=== PATIENT | male | born 1990 | race African-American/Black ===

== ENCOUNTER 2019-04-06 10:18 | Emergency (ER) | payer MEDICAID ==
[~2019-04-06] VITALS: Ht 172.7 cm; Wt 73.0 kg
[2019-04-06] MEDS ORDERED: IPRATROPIUM/ALBUTEROL 0.5-3(2.5)MG/3ML NEB HHN ONE (13:30)
[2019-04-06 13:48] LABS: CHLORIDE 107 mEq/L (98-107)
[2019-04-06 13:58] LABS: BASOPHILS % 0.1 % (0.0-2.0); EOSINOPHILS % 1.9 % (0.0-5.0); HEMATOCRIT. 46.5 % (42.0-52.0); HEMOGLOBIN. 15.9 g/dL (14.0-18.0); LYMPHOCYTES % 20.8 % (20.0-50.0); MEAN CORPUSCULAR HEMOGLOBIN 33.3 pg (28.0-32.0); MEAN CORPUSCULAR VOLUME 97.4 fL (80.0-94.0); MEAN PLATELET VOLUME 8.2 fl (7.4-10.4); MONOCYTES % 8.3 % (2.0-8.0); NEUTROPHILS % 68.9 % (40.0-76.0); PLATELET 230 x1000/uL (130-400); RED BLOOD CELL COUNT 4.77 mill/uL (4.7-6.1); RED CELL DISTRIBUTION WIDTH 12.7 % (11.6-14.6)
[2019-04-06 14:23] LABS: HEPATITIS B SURFACE ANTIGEN NEGATIVE
[2019-04-06 14:52] LABS: HEPATITIS A AB IGM NEGATIVE (NEGATIVE)
[2019-04-06 15:03] LABS: CLARITY URINE CLEAR (CLEAR); COLOR URINE YELLOW (YELLOW); KETONES URINE 1+ (NEGATIVE); LEUKOCYTE ESTERASE URINE NEGATIVE (NEGATIVE); NITRITE URINE NEGATIVE (NEGATIVE); OCCULT BLOOD URINE NEGATIVE (NEGATIVE); PH URINE 5.5 (4.5-8.0); PROTEIN URINE NEGATIVE (NEGATIVE); SPECIFIC GRAVITY URINE 1.028 (1.005-1.030); UROBILINOGEN URINE 0.2 E.U./dL (0.2-1.0)
[2019-04-06 15:17] LABS: CANNABINOID URINE SCREEN PRESUMTIVE POSITIVE (NEGATIVE); METHADONE URINE SCREEN NEGATIVE (NEGATIVE); OPIATES URINE SCREEN NEGATIVE (NEGATIVE); PHENCYCLIDINE URINE SCREEN NEGATIVE (NEGATIVE)
[2019-04-06 15:18] LABS: *AMPHETAMINES SCREEN URINE NEGATIVE (NEGATIVE); *BARBITURATES SCREEN URINE NEGATIVE (NEGATIVE); *BENZODIAZEPINES SCREEN URINE NEGATIVE (NEGATIVE); *COCAINE SCREEN URINE NEGATIVE (NEGATIVE)
[2019-04-06 15:55] VITALS: BP 122/74
[2019-04-08 05:06] LABS: HIV SCREEN 4G Non Reactive (Non Reactive)
== END 2019-04-06 15:55 | disposition home or self-care (01) ==
LOC: ER 10:49
DX: J45.901 Unspecified asthma with (acute) exacerbation (principal); M94.0 Chondrocostal junction syndrome [Tietze]; R45.1 Restlessness and agitation; R45.6 Violent behavior; K08.9 Disorder of teeth and supporting structures, unspecified; Z59.0 Homelessness; F20.9 Schizophrenia, unspecified; R82.4 Acetonuria; F12.10 Cannabis abuse, uncomplicated; R46.1 Bizarre personal appearance
CPT/HCPCS: 36415; 80053; 80305; 81003; 82140; 85025; 87389; 93005; 94640; 99284; J7620; Z7610; 86705; 86709; 86803; 87340

== ENCOUNTER 2019-04-06 19:50 | Emergency (ER) | payer MEDICAID ==
[~2019-04-06] VITALS: Ht 175.3 cm; Wt 73.0 kg
[2019-04-07] MEDS ORDERED: QUETIAPINE FUMARATE 50MG TABLET PO SCH (01:30)
[2019-04-07] MEDS ORDERED: LORAZEPAM 2MG/ML CPJ IM ONE (01:30)
[2019-04-07] MEDS ORDERED: OLANZAPINE 10 MG/VIAL IM ONE (01:30)
[2019-04-07 05:00] LABS: HEMATOCRIT. 45.6 % (42.0-52.0); HEMOGLOBIN. 15.5 g/dL (14.0-18.0); MEAN CORPUSCULAR HEMOGLOBIN 33.1 pg (28.0-32.0); MEAN CORPUSCULAR VOLUME 97.8 fL (80.0-94.0); MEAN PLATELET VOLUME 8.2 fl (7.4-10.4); PLATELET 193 x1000/uL (130-400); RED BLOOD CELL COUNT 4.67 mill/uL (4.7-6.1); RED CELL DISTRIBUTION WIDTH 12.8 % (11.6-14.6)
[2019-04-07 05:21] LABS: CHLORIDE 108 mEq/L (98-107)
[2019-04-07 05:22] LABS: PLATELET ESTIMATE NORMAL
[2019-04-07 05:25] LABS: ETHANOL BLOOD < 10 mg/dL
[2019-04-07] MEDS ORDERED: ALBUTEROL (0.083%) 2.5MG/3ML NEB HHN STA (10:21)
[2019-04-07] MEDS ORDERED: PREDNISONE 20MG TABLET PO STA (10:21)
[2019-04-07] MEDS ORDERED: IPRATROPIUM BROMIDE (0.02%) 0.5MG/2.5ML NEB HHN STA (10:21)
[2019-04-07 11:51] LABS: CLARITY URINE CLEAR (CLEAR); COLOR URINE YELLOW (YELLOW); KETONES URINE NEGATIVE (NEGATIVE); LEUKOCYTE ESTERASE URINE NEGATIVE (NEGATIVE); NITRITE URINE NEGATIVE (NEGATIVE); OCCULT BLOOD URINE NEGATIVE (NEGATIVE); PH URINE 5.5 (4.5-8.0); PROTEIN URINE NEGATIVE (NEGATIVE); SPECIFIC GRAVITY URINE 1.027 (1.005-1.030); UROBILINOGEN URINE 0.2 E.U./dL (0.2-1.0)
[2019-04-07 12:10] LABS: *AMPHETAMINES SCREEN URINE NEGATIVE (NEGATIVE); *BARBITURATES SCREEN URINE NEGATIVE (NEGATIVE)
[2019-04-07 12:11] LABS: *BENZODIAZEPINES SCREEN URINE NEGATIVE (NEGATIVE); *COCAINE SCREEN URINE NEGATIVE (NEGATIVE); CANNABINOID URINE SCREEN PRESUMTIVE POSITIVE (NEGATIVE); METHADONE URINE SCREEN NEGATIVE (NEGATIVE); OPIATES URINE SCREEN NEGATIVE (NEGATIVE); PHENCYCLIDINE URINE SCREEN NEGATIVE (NEGATIVE)
[2019-04-08] MEDS ORDERED: QUETIAPINE FUMARATE 50MG TABLET PO SCH (04:00)
[2019-04-08 10:50] VITALS: BP 125/80
== END 2019-04-08 12:08 | disposition home or self-care (01) ==
LOC: ER 19:50
DX: R45.851 Suicidal ideations (principal); R44.0 Auditory hallucinations; J45.909 Unspecified asthma, uncomplicated; F15.10 Other stimulant abuse, uncomplicated; Z88.1 Allergy status to other antibiotic agents
CPT/HCPCS: 71045; 96372; 99284; J2060; J3490; J7512; J7611; Z7610

== ENCOUNTER 2019-05-24 01:37 | Emergency (ER) | payer MEDICAID ==
[~2019-05-24] VITALS: Ht 177.8 cm; Wt 86.1 kg
[2019-05-24] MEDS ORDERED: ALBUTEROL (0.5%) 2.5MG/0.5ML NEB HHN ONE (03:30)
[2019-05-24 04:03] LABS: BASOPHILS % 0.5 % (0.0-2.0); EOSINOPHILS % 3.8 % (0.0-5.0); HEMATOCRIT. 42.6 % (42.0-52.0); HEMOGLOBIN. 14.3 g/dL (14.0-18.0); LYMPHOCYTES % 27.5 % (20.0-50.0); MEAN CORPUSCULAR HEMOGLOBIN 32.4 pg (28.0-32.0); MEAN CORPUSCULAR VOLUME 96.7 fL (80.0-94.0); MEAN PLATELET VOLUME 7.9 fl (7.4-10.4); MONOCYTES % 9.1 % (2.0-8.0); NEUTROPHILS % 59.1 % (40.0-76.0); PLATELET 214 x1000/uL (130-400); RED CELL DISTRIBUTION WIDTH 14.5 % (11.6-14.6)
[2019-05-24 04:14] LABS: CHLORIDE 107 mEq/L (98-107)
[2019-05-24 04:18] LABS: ETHANOL BLOOD < 10 mg/dL
[2019-05-24 04:42] LABS: CLARITY URINE CLEAR (CLEAR); COLOR URINE YELLOW (YELLOW); KETONES URINE NEGATIVE (NEGATIVE); LEUKOCYTE ESTERASE URINE NEGATIVE (NEGATIVE); NITRITE URINE NEGATIVE (NEGATIVE); OCCULT BLOOD URINE NEGATIVE (NEGATIVE); PROTEIN URINE NEGATIVE (NEGATIVE); SPECIFIC GRAVITY URINE 1.022 (1.005-1.030)
[2019-05-24] MEDS ORDERED: ACETAMINOPHEN 500MG TABLET PO ONE (04:45)
[2019-05-24 04:51] LABS: *COCAINE SCREEN URINE NEGATIVE (NEGATIVE); METHADONE URINE SCREEN NEGATIVE (NEGATIVE)
[2019-05-24 04:52] LABS: *AMPHETAMINES SCREEN URINE NEGATIVE (NEGATIVE); *BARBITURATES SCREEN URINE NEGATIVE (NEGATIVE); *BENZODIAZEPINES SCREEN URINE NEGATIVE (NEGATIVE); CANNABINOID URINE SCREEN PRESUMTIVE POSITIVE (NEGATIVE); OPIATES URINE SCREEN NEGATIVE (NEGATIVE); PHENCYCLIDINE URINE SCREEN NEGATIVE (NEGATIVE)
[2019-05-24] MEDS ORDERED: OLANZAPINE 5MG TABLET ODT PO ONE (12:30)
[2019-05-24] MEDS ORDERED: ALBUTEROL 6.7GM HFA INHALER ORI ONE (21:30)
[2019-05-24 22:10] VITALS: BP 123/71
== END 2019-05-24 22:50 ==
LOC: ER 01:37
DX: J45.909 Unspecified asthma, uncomplicated (principal); R44.0 Auditory hallucinations; F12.10 Cannabis abuse, uncomplicated; F31.9 Bipolar disorder, unspecified; Z98.890 Other specified postprocedural states; Z88.0 Allergy status to penicillin
CPT/HCPCS: 36415; 80053; 80305; 80307; 80320; 80329; 81003; 85025; 94640; 99285; J7611; Z7610; G0480

== ENCOUNTER 2019-06-03 07:20 | Emergency (ER) | payer MEDICAID ==
[~2019-06-03] VITALS: Ht 180.3 cm; Wt 84.0 kg
[2019-06-03] MEDS ORDERED: METHYLPREDNISOLONE SOD SUCC 125 MG/2 ML VIAL IV STA (07:41)
[2019-06-03] MEDS ORDERED: IPRATROPIUM BROMIDE (0.02%) 0.5MG/2.5ML NEB HHN STA (07:41)
[2019-06-03] MEDS ORDERED: ALBUTEROL (0.083%) 2.5MG/3ML NEB HHN STA (07:41)
[2019-06-03 09:13] VITALS: BP 128/75
== END 2019-06-03 09:17 | disposition home or self-care (01) ==
LOC: ER 07:20
DX: J45.901 Unspecified asthma with (acute) exacerbation (principal); F17.290 Nicotine dependence, other tobacco product, uncomplicated; F12.10 Cannabis abuse, uncomplicated; J45.909 Unspecified asthma, uncomplicated; F31.9 Bipolar disorder, unspecified; F20.9 Schizophrenia, unspecified; Z88.0 Allergy status to penicillin
CPT/HCPCS: 94644; 99285; J7611; Z7610

== ENCOUNTER 2020-01-14 10:30 | Inpatient (IN) | payer MEDICAID ==
[~2020-01-14] VITALS: Ht 177.8 cm; Wt 81.6 kg
[2020-01-14] MEDS ORDERED: METHYLPREDNISOLONE SOD SUCC 125 MG/2 ML VIAL IV STA (10:45)
[2020-01-14] MEDS ORDERED: ALBUTEROL (0.083%) 2.5MG/3ML NEB HHN STA (10:45)
[2020-01-14] MEDS ORDERED: IPRATROPIUM BROMIDE (0.02%) 0.5MG/2.5ML NEB HHN STA (10:45)
[2020-01-14 10:56] LABS: BASOPHILS % 0.4 % (0.0-2.0); EOSINOPHILS % 4.9 % (0.0-5.0); HEMATOCRIT. 49.8 % (42.0-52.0); HEMOGLOBIN. 17.2 g/dL (14.0-18.0); LYMPHOCYTES % 24.5 % (20.0-50.0); MEAN CORPUSCULAR HEMOGLOBIN 33.4 pg (28.0-32.0); MEAN CORPUSCULAR VOLUME 96.6 fL (80.0-94.0); MEAN PLATELET VOLUME 7.7 fl (7.4-10.4); MONOCYTES % 6.5 % (2.0-8.0); NEUTROPHILS % 63.7 % (40.0-76.0); PLATELET 264 x1000/uL (130-400); RED BLOOD CELL COUNT 5.15 mill/uL (4.7-6.1)
[2020-01-14 11:00] LABS: CHLORIDE 106 mEq/L (98-107)
[2020-01-14] MEDS ORDERED: MAGNESIUM 2 G PREMIX 50 ML IV ONE (11:00)
[2020-01-14] MEDS ORDERED: ENOXAPARIN 40MG/0.4ML SYR SUBCUT SCH (17:00)
[2020-01-14] MEDS: IPRATROPIUM/ALBUTEROL 0.5-3(2.5)MG/3ML NEB HHN SCH (17:30)
[2020-01-14] MEDS ORDERED: CLONIDINE 0.1MG TABLET PO PRN (18:45)
[2020-01-14 20:15] VITALS: BP_SYST 134; BP_SYST 139; BP_DIAS 75
[2020-01-14] MEDS: METHYLPREDNISOLONE SOD SUCC 40 MG/ML VIAL IV SCH (21:07)
[2020-01-14] MEDS ORDERED: ZOLPIDEM TARTRATE 5MG TABLET PO PRN (22:00)
[2020-01-14] MEDS ORDERED: CHLO10TA10 MT (22:58)
[2020-01-14] MEDS ORDERED: FLUT9.9S BOTHNSTRLS (22:58)
[2020-01-15 00:32] VITALS: BP 159/82
[2020-01-15] MEDS: IPRATROPIUM/ALBUTEROL 0.5-3(2.5)MG/3ML NEB HHN SCH ×4 (01:26→12:36)
[2020-01-15 04:20] VITALS: BP 128/51
[2020-01-15] MEDS: METHYLPREDNISOLONE SOD SUCC 40 MG/ML VIAL IV SCH ×2 (05:00→13:23)
[2020-01-15 08:00] VITALS: BP 130/72
[2020-01-15 12:00] VITALS: BP 133/79
[2020-01-15] MEDS ORDERED: PNEUMOCOCCAL 23-VAL P-SAC VAC 0.5 ML IM ONE (12:00)
[2020-01-15] MEDS ORDERED: FLUT1DIS3 INH (12:53)
[2020-01-15] MEDS ORDERED: IPRA3AMP9 NEB (12:53)
[2020-01-15] MEDS ORDERED: ALBU18HF2 IH (12:53)
[2020-01-15] MEDS ORDERED: P20 MT (12:53)
[2020-01-15 14:36] VITALS: BP 145/91
[2020-02-14] MEDS ORDERED: P50 MT (14:46)
[2020-02-14] MEDS ORDERED: AZIT500T3 MT (14:47)
== END 2020-01-15 16:08 | disposition home or self-care (01) | DRG 141 ==
LOC: ER 10:30 → 6WST 12:17 → EDBEDREQ 12:20 → ENRESERV 19:43 → 6WST 23:00
PROVIDERS: ADMIT Internal Medicine; ATTEND Internal Medicine
DX: J45.901 Unspecified asthma with (acute) exacerbation (principal); J96.01 Acute respiratory failure with hypoxia; I10 Essential (primary) hypertension; G83.24 Monoplegia of upper limb affecting left nondominant side; F31.9 Bipolar disorder, unspecified; F20.9 Schizophrenia, unspecified; F12.90 Cannabis use, unspecified, uncomplicated; Z88.1 Allergy status to other antibiotic agents
CPT/HCPCS: 36415; 71045; 80053; 85025; 93005; 94640; 94644; 99285; J1650; J2920; J2930; J3475

== ENCOUNTER 2020-02-12 05:36 | Inpatient (IN) | payer MEDICAID ==
[~2020-02-12] VITALS: Ht 177.8 cm; Wt 114.9 kg
[~2020-02-12 05:36] MED LIST: ALBU18HF2 IH; CHLO10TA10 MT; FLUT1DIS3 INH; FLUT9.9S BOTHNSTRLS; IPRA3AMP9 NEB; P20 MT
[2020-02-12] MEDS ORDERED: PREDNISONE 20MG TABLET PO STA (05:52)
[2020-02-12] MEDS ORDERED: IPRATROPIUM BROMIDE (0.02%) 0.5MG/2.5ML NEB HHN STA (05:52)
[2020-02-12] MEDS ORDERED: ALBUTEROL (0.083%) 2.5MG/3ML NEB HHN STA (05:52)
[2020-02-12] MEDS ORDERED: MAGNESIUM 1 G PREMIX 100 ML IV ONE (06:30)
[2020-02-12] MEDS ORDERED: TERBUTALINE SULFATE 1MG/ML VIAL SUBCUT ONE (06:30)
[2020-02-12 06:35] LABS: BASOPHILS % 0.6 % (0.0-2.0); EOSINOPHILS % 5.6 % (0.0-5.0); HEMATOCRIT. 44.3 % (42.0-52.0); HEMOGLOBIN. 15.3 g/dL (14.0-18.0); LYMPHOCYTES % 40.4 % (20.0-50.0); MEAN CORPUSCULAR HEMOGLOBIN 33.3 pg (28.0-32.0); MEAN CORPUSCULAR VOLUME 96.5 fL (80.0-94.0); MEAN PLATELET VOLUME 8.3 fl (7.4-10.4); MONOCYTES % 7.1 % (2.0-8.0); NEUTROPHILS % 46.3 % (40.0-76.0); PLATELET 298 x1000/uL (130-400); RED BLOOD CELL COUNT 4.59 mill/uL (4.7-6.1)
[2020-02-12 06:45] LABS: CHLORIDE 108 mEq/L (98-107); INR 0.9; PROTHROMBIN TIME 9.8 sec (9.6-11.0)
[2020-02-12] MEDS ORDERED: AZITHROMYCIN 500 MG TABLET PO ONE (10:45)
[2020-02-12] MEDS ORDERED: CEFTRIAXONE 1 G PREMIX 50 ML IV ONE (10:45)
[2020-02-12 14:05] VITALS: BP_SYST 123; BP_SYST 143; BP_DIAS 73
[2020-02-12] MEDS: METHYLPREDNISOLONE SOD SUCC 40 MG/ML VIAL IV SCH ×2 (15:35→21:33)
[2020-02-12 16:00] VITALS: BP 125/79
[2020-02-12] MEDS: ALBUTEROL 6.7GM HFA INHALER ORI SCH ×5 (16:00→23:26)
[2020-02-12] MEDS ORDERED: NA PHOS,M-B/NA PHOS,DI-BA ENEMA 118ML PR PRN (16:30)
[2020-02-12] MEDS ORDERED: ACETAMINOPHEN 650MG/20.3ML UDC GT PRN ×2 (16:30)
[2020-02-12] MEDS ORDERED: DIPHENHYDRAMINE 50MG/ML VIAL IV PRN (16:30)
[2020-02-12] MEDS ORDERED: GUAIFENESIN 200MG/10ML SUGAR FREE UDC PO PRN (16:30)
[2020-02-12] MEDS ORDERED: ACETAMINOPHEN 325MG TABLET PO PRN ×2 (16:30)
[2020-02-12] MEDS ORDERED: CLONIDINE 0.1MG TABLET PO PRN (16:30)
[2020-02-12] MEDS ORDERED: ENOXAPARIN 40MG/0.4ML SYR SUBCUT SCH (16:30)
[2020-02-12] MEDS ORDERED: DOCUSATE SODIUM 100MG CAPSULE PO PRN (16:30)
[2020-02-12] MEDS ORDERED: ACETAMINOPHEN 650MG SUPP PR PRN (16:30)
[2020-02-12] MEDS ORDERED: HYDROCODONE/ACETAMINOPHEN 5/325MG TABLET PO PRN (16:30)
[2020-02-12] MEDS: MONTELUKAST SODIUM 10MG TABLET PO SCH (16:57)
[2020-02-12] MEDS: CHLORPROMAZINE HCL 10 MG TABLET PO SCH (16:57)
[2020-02-12 19:13] LABS: PHENCYCLIDINE URINE SCREEN NEGATIVE (NEGATIVE)
[2020-02-12 19:14] LABS: *AMPHETAMINES SCREEN URINE NEGATIVE (NEGATIVE); *BARBITURATES SCREEN URINE NEGATIVE (NEGATIVE); *BENZODIAZEPINES SCREEN URINE NEGATIVE (NEGATIVE); *COCAINE SCREEN URINE NEGATIVE (NEGATIVE); CANNABINOID URINE SCREEN PRESUMTIVE POSITIVE (NEGATIVE); METHADONE URINE SCREEN NEGATIVE (NEGATIVE); OPIATES URINE SCREEN NEGATIVE (NEGATIVE)
[2020-02-12 20:00] VITALS: BP 112/72
[2020-02-12] MEDS: ENOXAPARIN 30MG/0.3ML SYR SUBCUT SCH (21:33)
[2020-02-12 23:51] VITALS: BP 110/59
[2020-02-13 04:00] VITALS: BP 114/55
[2020-02-13] MEDS: ALBUTEROL 6.7GM HFA INHALER ORI SCH ×2 (04:00→17:00)
[2020-02-13] MEDS: METHYLPREDNISOLONE SOD SUCC 40 MG/ML VIAL IV SCH ×3 (05:35→21:20)
[2020-02-13 06:29] LABS: CHLORIDE 105 mEq/L (98-107)
[2020-02-13 06:31] LABS: BASOPHILS % 0.1 % (0.0-2.0); HEMATOCRIT. 42.4 % (42.0-52.0); HEMOGLOBIN. 14.4 g/dL (14.0-18.0); LYMPHOCYTES % 8.9 % (20.0-50.0); MEAN CORPUSCULAR HEMOGLOBIN 32.7 pg (28.0-32.0); MEAN CORPUSCULAR VOLUME 96.6 fL (80.0-94.0); MONOCYTES % 2.8 % (2.0-8.0); NEUTROPHILS % 88.2 % (40.0-76.0); PLATELET 298 x1000/uL (130-400); RED BLOOD CELL COUNT 4.39 mill/uL (4.7-6.1); RED CELL DISTRIBUTION WIDTH 13.8 % (11.6-14.6)
[2020-02-13 06:42] LABS: LDL CHOLESTEROL 89 mg/dL (5-100)
[2020-02-13 06:43] LABS: HDL CHOLESTEROL 68 mg/dL (40-59)
[2020-02-13 08:00] VITALS: BP 103/45
[2020-02-13] MEDS: AZITHROMYCIN 500 MG in DEXT 5% WATER 250 ML IV SCH (08:27)
[2020-02-13] MEDS: CEFTRIAXONE 1,000 MG in DEXTROSE 5% WATER 50 ML IV SCH (08:28)
[2020-02-13] MEDS: ENOXAPARIN 30MG/0.3ML SYR SUBCUT SCH ×2 (08:28→21:59)
[2020-02-13] MEDS: CHLORPROMAZINE HCL 10 MG TABLET PO SCH ×3 (08:28→16:47)
[2020-02-13] MEDS: ONDANSETRON HCL 4MG/2ML INJ IV PRN (11:41)
[2020-02-13] MEDS: MAGNESIUM/ALUMINUM HYDROXIDE/SIMETHICONE 30ML UDC PO PRN (11:41)
[2020-02-13 12:00] VITALS: BP 110/88
[2020-02-13 16:00] VITALS: BP 112/62
[2020-02-13] MEDS: MONTELUKAST SODIUM 10MG TABLET PO SCH (16:48)
[2020-02-13 20:00] VITALS: BP 99/63
[2020-02-13] MEDS: IPRATROPIUM/ALBUTEROL 0.5-3(2.5)MG/3ML NEB HHN SCH (22:25)
[2020-02-13] MEDS: FLUTICASONE PROPIONATE 50MCG/SPRAY BOTTLE BOTHNSTRLS SCH (23:38)
[2020-02-14] VITALS: BP 116/60
[2020-02-14 04:00] VITALS: BP 112/61
[2020-02-14] MEDS: IPRATROPIUM/ALBUTEROL 0.5-3(2.5)MG/3ML NEB HHN SCH ×3 (04:14→14:24)
[2020-02-14] MEDS: METHYLPREDNISOLONE SOD SUCC 40 MG/ML VIAL IV SCH ×2 (05:06→14:05)
[2020-02-14 08:00] VITALS: BP 130/78
[2020-02-14] MEDS: ENOXAPARIN 30MG/0.3ML SYR SUBCUT SCH (09:53)
[2020-02-14] MEDS: FLUTICASONE PROPIONATE 50MCG/SPRAY BOTTLE BOTHNSTRLS SCH (09:53)
[2020-02-14] MEDS: CEFTRIAXONE 1,000 MG in DEXTROSE 5% WATER 50 ML IV SCH (10:35)
[2020-02-14] MEDS: AZITHROMYCIN 500 MG in DEXT 5% WATER 250 ML IV SCH (10:36)
[2020-02-14] MEDS: ONDANSETRON HCL 4MG/2ML INJ IV PRN (12:22)
[2020-02-14] MEDS: CHLORPROMAZINE HCL 10 MG TABLET PO SCH ×2 (12:25→15:15)
[2020-02-14 12:34] VITALS: BP 113/59
[2020-02-14] MEDS: MAGNESIUM/ALUMINUM HYDROXIDE/SIMETHICONE 30ML UDC PO PRN (12:42)
[2020-02-14] MEDS ORDERED: P50 MT (14:46)
[2020-02-14] MEDS ORDERED: AZIT500T3 MT (14:47)
[2020-02-14 15:07] VITALS: BP 113/59
== END 2020-02-14 17:02 | disposition home or self-care (01) | DRG 133 ==
LOC: ER 05:36 → 7WST 10:52 → EDBEDREQ 10:58 → ENRESERV 11:33 → 6WST 02-13 19:44
PROVIDERS: ADMIT Family Medicine; ATTEND Family Medicine
DX: J96.00 Acute respiratory failure, unspecified whether with hypoxia or hypercapnia (principal); J45.901 Unspecified asthma with (acute) exacerbation; F20.9 Schizophrenia, unspecified; E66.9 Obesity, unspecified; F12.90 Cannabis use, unspecified, uncomplicated; F17.210 Nicotine dependence, cigarettes, uncomplicated; F31.9 Bipolar disorder, unspecified; I10 Essential (primary) hypertension; Z20.828 Contact with and (suspected) exposure to other viral communicable diseases; Z88.0 Allergy status to penicillin; Z68.36 Body mass index [BMI] 36.0-36.9, adult
CPT/HCPCS: 36415; 71045; 80053; 80061; 80305; 83036; 83880; 85025; 87635; 94640; 99285; J0456; J0696; J1650; J2405; J2920; J3105; J3475; J7060; J7512; Q0161